=== PATIENT | male | born 1970 | race Caucasian/White ===

== ENCOUNTER 2016-05-18 11:57 | Emergency (ER) | payer OTHER ==
[~2016-05-18] VITALS: Ht 188 cm; Wt 226.8 kg
[~2016-05-18 11:57] MED LIST: COREG12.5 MG PO; CRESTOR20 MG PO; CYMBALTA60 MG PO; DURAGESIC75 MCG TOP; LASIX80 MG PO; NEURONTIN400 MG PO; PLAVIX75 MG PO
[2016-05-18] MEDS ORDERED: KEPPRA1000 MG PO (16:51)
[2016-05-18] MEDS ORDERED: CATAPRES0.3 MG PO (16:51)
[2016-05-18] MEDS ORDERED: VITAMIN D31000 UNI1 PO (17:21)
[2016-05-18] MEDS ORDERED: SUPER CALCIUM600 MG PO (17:25)
[2016-05-18] MEDS ORDERED: FLOMAX0.4 MG PO (17:26)
[2016-05-18] MEDS ORDERED: PROTONIX20 MG PO (17:27)
[2016-05-18] MEDS ORDERED: PRINIVIL20 MG PO (17:28)
[2016-05-18] MEDS ORDERED: DURAGESIC1 EAC2 TOP (17:30)
== END 2016-05-18 15:30 | disposition short-term general hospital (02) ==
LOC: ER 11:57
DX: I10 Essential (primary) hypertension (principal); R51 Headache; F41.9 Anxiety disorder, unspecified
CPT/HCPCS: J1885; J2060; J2405